=== PATIENT | male | born 1950 | race Caucasian/White ===

== ENCOUNTER 2023-07-08 07:25 | Outpatient (CLI) | payer OTHER | END 2023-07-08 07:26 | disposition home or self-care (01) | LOC: CSHCP 07:25 | PROVIDERS: ATTEND Chiropractor | DX: R06.81 Apnea, not elsewhere classified (principal); Z13.79 Encounter for other screening for genetic and chromosomal anomalies | CPT/HCPCS: 71046; 94060; 94760 ==